=== PATIENT | male | born 1980 | race Caucasian/White ===

== ENCOUNTER 2018-10-26 05:17 | Emergency (ER) | payer OTHER ==
[~2018-10-26] VITALS: Ht 182.9 cm; Wt 90.7 kg
[~2018-10-26 05:17] MED LIST: LEXAPRO20 MG PO; MOBIC7.5 MG PO; TRAMADOL 50 MG50 MG PO
== END 2018-10-26 06:40 ==
LOC: M.ERS 05:17
DX: Z53.21 Procedure and treatment not carried out due to patient leaving prior to being seen by health care provider (principal)